=== PATIENT | female | born 1950 | race Caucasian/White ===

== ENCOUNTER → 2021-12-12 | Outpatient (CLI) | payer MEDICARE ==
--- NOTE | 2021-12-12 15:29 | RAD ---
EXAM: Lumbar spine, 3 views. HISTORY: Pain. COMPARISON: None. FINDINGS: 3 views of the lumbar spine are obtained. There is mild thoracolumbar scoliosis. There is 3 mm grade 1 anterolisthesis of L3 on L4, 8 mm grade 1 anterolisthesis of L4 on L5, and 10 mm grade 1 anterolisthesis of L5 on S1. There is degenerative endplate remodeling with disc space narrowing and osteophytosis primarily at L5-S1, T12-L1 and L4-L5. There is facet arthropathy at the mid lower lumba r levels. There are incidental median sternotomy wires. IMPRESSION: 1. Multilevel degenerative change, primarily at the lower lumbar levels. 2. Multilevel grade 1 anterolisthesis, primarily at the lumbosacral junction. Electronically signed by: Kimmy Branch MD (12/12/2021 3:27 PM) [id number]
== END ==
LOC: RAD 15:01
PROVIDERS: ATTEND Family Medicine
DX: M47.816 Spondylosis without myelopathy or radiculopathy, lumbar region (principal); M43.17 Spondylolisthesis, lumbosacral region; M48.07 Spinal stenosis, lumbosacral region; M48.05 Spinal stenosis, thoracolumbar region; M41.85 Other forms of scoliosis, thoracolumbar region; M25.78 Osteophyte, vertebrae; M54.41 Lumbago with sciatica, right side
CPT/HCPCS: 72100